=== PATIENT | female | born 1965 | race Hispanic/Latino ===

== ENCOUNTER 2016-08-07 19:05 | Emergency (ER) | payer OTHER ==
[2016-08-07] MEDS ORDERED: TYLENOL ONE (19:37)
[2016-08-07 19:38] VITALS: BP 150/89
[2016-08-07] MEDS ORDERED: TYLENOL PO ONE ×2 (19:39→19:40)
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
--- NOTE | 2016-08-08 19:31 | ED Elopement Review ---
ED Pt Elopement review - Results review Lab results: Laboratory Tests 08/07/16 20:13 Urine HCG, Qual Negative ct c/l spine no acute findings - Call Back decision Pt Call Back Decision: No action required
== END 2016-08-07 20:20 | disposition left against medical advice (07) ==
LOC: ED 19:05
DX: M54.2 Cervicalgia (principal); M54.9 Dorsalgia, unspecified; Z53.21 Procedure and treatment not carried out due to patient leaving prior to being seen by health care provider
CPT/HCPCS: 72125; 72128; 81025

== ENCOUNTER 2016-12-28 12:54 | Outpatient (CLI) | payer OTHER ==
--- NOTE | 2016-12-28 13:45 | Mammography Report ---
BILATERAL MAMMOGRAM with CAD: HISTORY:Cancer screening. Prior studies are unavailable for comparison. FINDINGS: The breasts are almost entirely fat (<25% glandular). No mass, distortion, suspicious calcification, or skin change is seen. IMPRESSION: Negative mammogram. There is no mammographic evidence of malignancy. RECOMMENDATION: Follow-up per ACS guidelines. BI-RADS CATEGORY: 1 = Negative ACR BI-RADS MAMMOGRAPHIC CODES: 0 = Needs additional imaging evaluation; 1 = Negative; 2 = Benign; 3 = Probably benign; 4 = Suspicious; 5 = Malignant; 6 = Known biopsy-proven malignancy COMMENT: 1. Dense breast tissue, i.e., adenosis, fibrocystic changes, etc., may obscure an underlying neoplasm. 2. Approximately 10% of cancers are not detected with mammography. 3. A negative mammography report should not delay biopsy if a clinically suspicious mass is present. COMMENT: Patient follow-up letters are generated in [facility].
== END 2016-12-28 12:55 | disposition home or self-care (01) ==
LOC: MAMMO 12:54
PROVIDERS: ATTEND Advanced Practice Midwife
DX: Z12.31 Encounter for screening mammogram for malignant neoplasm of breast (principal); I10 Essential (primary) hypertension; F17.200 Nicotine dependence, unspecified, uncomplicated
CPT/HCPCS: 77067; G0202

== ENCOUNTER 2017-12-31 07:24 | Outpatient (CLI) | payer OTHER ==
--- NOTE | 2017-12-31 08:05 | Mammography Report ---
BILATERAL MAMMOGRAM: FINDINGS: There are scattered fibroglandular densities (approximately 25%-50% glandular). No mass, distortion, suspicious calcification, or skin change is seen. There is no significant change when compared to her prior exam in December 2016. CAD was utilized. IMPRESSION: Negative mammogram. There is no mammographic evidence of malignancy. RECOMMENDATION: Follow-up per ACS guidelines. BI-RADS CATEGORY: 1 = Negative ACR BI-RADS MAMMOGRAPHIC CODES: 0 = Needs additional imaging evaluation; 1 = Negative; 2 = Benign; 3 = Probably benign; 4 = Suspicious; 5 = Malignant; 6 = Known biopsy-proven malignancy COMMENT: 1. Dense breast tissue, i.e., adenosis, fibrocystic changes, etc., may obscure an underlying neoplasm. 2. Approximately 10% of cancers are not detected with mammography. 3. A negative mammography report should not delay biopsy if a clinically suspicious mass is present. COMMENT: Patient follow-up letters are generated in [facility].
== END 2017-12-31 07:25 | disposition home or self-care (01) ==
LOC: MAMMO 07:24
PROVIDERS: ATTEND Advanced Practice Midwife
DX: Z12.31 Encounter for screening mammogram for malignant neoplasm of breast (principal); F17.210 Nicotine dependence, cigarettes, uncomplicated
CPT/HCPCS: 77067

== ENCOUNTER 2018-12-11 12:36 | Emergency (ER) | payer OTHER ==
--- NOTE | 2018-12-11 12:50 | Emergency Department Report ---
Blank Doc - Documentation Documentation: This is a 53-year-old female that presents with acute on chronic intermittent headaches. This initial assessment/diagnostic orders/clinical plan/treatment(s) is/are subject to change based on patient's health status, clinical progression and re- assessment by fellow clinical providers in the ED. Further treatment and workup at subsequent clinical providers discretion. Patient/guardians urged not to elope from the ED as their condition may be serious if not clinically assessed and managed. Initial orders include: 1- Patient sent to [facility] for further evaluation and treatment
[2018-12-11 12:51] VITALS: BP 145/76
--- NOTE | 2018-12-11 13:55 | Emergency Department Report ---
ED Headache HPI - General Chief Complaint: Headache Stated Complaint: HEADACHE/LIGHT HEADED Time Seen by Provider: 12/11/18 12:48 Source: family Exam Limitations: no limitations - History of Present Illness Initial Comments: Mrs. Aceves is a very pleasant 53-year-old female who presents with headache and visual disturbance for the past 2 weeks. She saw several black spots which prompted her PCP Dr. Shadi Castro to refer her to pack operator Dr. Martinez. Dr. Martinez stated that she had normal eye exam with normal pressures. She has been referred to Dr. Gracia neurologist in [place]. Appointment is in December. She stated that "I just want to make sure my brain is okay". She has mild to moderate severe pain behind both eyes. No visual disturbances not returned. However she does have lightheadedness. Denies vertigo. Denies gait or speech difficulty. Denies paresthesias. Recently stop smoking for the past 6 weeks after 30 years of tobacco use. She has been using medication Chantix for the past 6 weeks. Timing/Duration: other (2 weeks) Quality: moderate Head Injury Location: frontal, global Recent Head Trauma: other (recent frequent headaches) Associated Symptoms: denies symptoms Allergies/Adverse Reactions: Allergies diphenhydramine HCl [From Benadryl] Allergy (Verified 12/11/18 12:37) Hives terfenadine [From Seldane] Allergy (Verified 12/11/18 12:37) Unknown Home Medications: Ambulatory Orders Butalb/Acetaminophen/Caffeine [Fioricet 50-300-40 mg CAP] 1 cap PO Q6HR PRN #10 cap 12/11/18 ED Review of Systems ROS: Stated complaint: HEADACHE/LIGHT HEADED Other details as noted in HPI Comment: All other systems reviewed and negative Constitutional: denies: fever, malaise Respiratory: denies: cough Cardiovascular: denies: chest pain ED Past Medical Hx - Past Medical History Previous Medical History?: Yes Hx Hypertension: Yes - Surgical History Additional Surgical History: tonsillitis,adnoids,reconstructive surg of ulnar bone,sinus surgery - Family History Family history: CAD/MT - Social History Smoking Status: Former Smoker Substance Use Type: None - Medications Home Medications: Home Medications Medication Instructions Recorded Confirmed Last Taken Type Butalb/Acetaminophen/Caffeine 1 cap PO Q6HR PRN #10 cap 12/11/18 Unknown Rx [Fioricet 50-300-40 mg CAP] ED Physical Exam - General Limitations: No Limitations General appearance: alert, in no apparent distress, other (pleasant, smiling, articulate, well-appearing, appears comfortable) - Head Head exam: Present: atraumatic, normocephalic - Eye Eye exam: Present: normal appearance - ENT ENT exam: Present: mucous membranes moist - Neck Neck exam: Present: normal inspection, full ROM. Absent: tenderness, meningi smus - Respiratory Respiratory exam: Present: normal lung sounds bilaterally. Absent: respiratory distress, wheezes, rales, rhonchi - Cardiovascular Cardiovascular Exam: Present: regular rate, normal rhythm, normal heart sounds. Absent: systolic murmur, diastolic murmur, rubs, gallop - GI/Abdominal GI/Abdominal exam: Present: soft, normal bowel sounds. Absent: distended, tenderness, guarding, rebound - Extremities Exam Extremities exam: Present: normal inspection - Back Exam Back exam: Present: normal inspection - Neurological Exam Neurological exam: Present: alert, oriented X3 - Psychiatric Psychiatric exam: Present: normal affect, normal mood - Skin Skin exam: Present: warm, dry, intact, normal color. Absent: rash ED Course Vital Signs 12/11/18 12:49 Temperature 97.9 F Pulse Rate 65 Respiratory 18 Rate Blood Pressure 145/76 O2 Sat by Pulse 98 Oximetry ED Medical Decision Making - Radiology Data Radiology results: report reviewed interpreted by me: CT head according to radiology report no acute process - Medical Decision Making Mrs. Aceves is a 53 yo female who presents with 2 weeks of headache and bilateral scotoma. With recent eye exam, pseudotumor cerebri is not likely. no obvious intracranial process such infarct, tumor or bleed exists. With the nature of th e headache, sinusitis is a concern. Subarachnoid hemorrhage or meningitis highly unlikely with this presentation. She will have MRI arranged by her new neurologist. I strongly encouraged her to keep this appointment. I have prescribed Fioricet for headache. Discharged home in stable condition. Critical care attestation.: If time is entered above; I have spent that time in minutes in the direct care of this critically ill patient, excluding procedure time. ED Disposition Clinical Impression: Acute headache, [place] Disposition: TO HOME OR SELFCARE Is pt being admited?: No Does the pt Need Aspirin: No Condition: Stable Instructions: Acute Headache (ED) Prescriptions: Butalb/Acetaminophen/Caffeine [Fioricet 50-300-40 mg CAP] 1 cap PO Q6HR PRN #10 cap PRN Reason: Headache
--- NOTE | 2018-12-11 14:47 | Cat Scan Report ---
CT scan of head without IV contrast: History: Headache. Findings: Ventricles are normal in size and midline in location. No evidence of acute ischemia, hemorrhage or mass. No extra axial fluid collection. Normal brainstem and cerebellum. 8mm polyp medial wall of the right maxillary sinus. 3 mm polyp at the medial of the left maxillary sinus. Normal mastoids. Impression: No acute intracranial abnormality. Sinus disease.
== END 2018-12-11 15:15 | disposition home or self-care (01) ==
LOC: ED 12:36
DX: H53.453 Other localized visual field defect, bilateral (principal); R51 Headache; I10 Essential (primary) hypertension; Z79.891 Long term (current) use of opiate analgesic; Z88.8 Allergy status to other drugs, medicaments and biological substances
CPT/HCPCS: 70450; 99283

== ENCOUNTER 2019-01-15 13:36 | Outpatient (CLI) | payer OTHER ==
--- NOTE | 2019-01-15 14:30 | Mammography Report ---
BILATERAL DIGITAL SCREENING MAMMOGRAM WITH CAD INDICATION: Routine screening mammography. TECHNIQUE: Digital bilateral 2D mammography was obtained in the craniocaudal and mediolateral obliq ue projections. This examination was interpreted with the benefit of Computer-Aided Detection analysi s. COMPARISON: 12/31/2017 FINDINGS: Breast Density: There are scattered areas of fibroglandular density. No mass, architectural distortion or suspicious calcifications. IMPRESSION:No mammographic evidence of malignancy. BI-RADS Category 1: Negative. No mammographic evidence of malignancy. Recommend routine screening m ammography in one year. A "normal" or negative report should not discourage follow up or biopsy of a clinically significant f inding. A written summary of these findings will be mailed to the patient. The patient will be entered into a mammography reporting system which will generate a reminder letter for the patient's next appointmen t at the appropriate interval. The [employer] recommends yearly mammograms starting at age 40 and continuing as l vincenzo as a woman is in good health. Breast MRI is recommended for women with an approximate 20-25% or greater lifetime risk of breast cancer, including women with a strong family history of breast or ova jannet cancer or who have been treated for Hodgkin's disease. Signer Name: Meño Wells MD Signed: 01/15/2019 2:25 PM Workstation Name: [id number]
== END 2019-01-15 13:37 | disposition home or self-care (01) ==
LOC: MAMMO 13:36
PROVIDERS: ATTEND Advanced Practice Midwife
DX: Z12.31 Encounter for screening mammogram for malignant neoplasm of breast (principal); I10 Essential (primary) hypertension
CPT/HCPCS: 77067

== ENCOUNTER 2019-05-06 08:39 | Day surgery (SDC) | payer OTHER ==
[~2019-05-06 08:39] MED LIST: SODIUM CHLORIDE 0.9% 1000 ML 1,000 ML IV SCH
--- NOTE | 2019-05-06 09:53 | Anesthesia Consultation ---
Anesthesia Consult and Med Hx Date of service: 05/06/19 - Airway Anesthetic Teeth Evaluation: Good ROM Head & Neck: Adequate Mental/Hyoid Distance: Adequate Mallampati Class: Class III Intubation Access Assessment: Possibly Difficult - Pulmonary Exam CTA: Yes - Cardiac Exam Cardiac Exam: RRR - Pre-Operative Health Status ASA Pre-Surgery Classification: ASA2 Proposed Anesthetic Plan: MAC - Pulmonary Hx Smoking: Yes (quit 07/2018) Hx Respiratory Symptoms: No - Cardiovascular System Hx Hypertension: Yes (took losartan this morning) Hx Heart Attack/AMI: No Hx Percutaneous Transluminal Coronary Angioplasty (PTCA): No - Central Nervous System CVA: No - Gastrointestinal Hx Gastroesophageal Reflux Disease: No - Endocrine Hx Renal Disease: No Hx Liver Disease: No Hx Insulin Dependent Diabetes: No Hx Non-Insulin Dependent Diabetes: No Hx Thyroid Disease: No - Other Systems Hx Obesity: No
--- NOTE | 2019-05-06 09:53 | Anesthesia Day of Surgery ---
Anesthesia Day of Surgery - Day of Surgery Patient Examined: Yes Patient H&P Reviewed: Yes Patient is NPO: Yes
[2019-05-06] MEDS ORDERED: PROPOFOL 200 MG/20 ML VIAL IV ONE ×2 (11:28)
[2019-05-06] MEDS ORDERED: LIDOCAINE MPF (2%) 20 MG/1 ML VIAL 5 ML ONE (11:30)
--- NOTE | 2019-05-06 11:51 | Short Stay Summary ---
Short Stay Documentation Date of service: 05/06/19 Narrative H&P: The patient presents for her first screening colonoscopy. Average risks. - History Past Medical History: arthritis, hypertension, hyperlipidemia Past Surgical History: tonsillectomy Social history: no significant social history - Allergies and Medications Current Medications: Allergies diphenhydramine HCl [From Benadryl] Allergy (Verified 12/11/18 12:37) Hives terfenadine [From Seldane] Allergy (Verified 12/11/18 12:37) Unknown Home Medications Medication Instructions Recorded Confirmed Last Taken Type Butalb/Acetaminophen/Caffeine 1 cap PO Q6HR PRN #10 cap 12/11/18 05/05/19 Rx [Fioricet 50-300-40 mg CAP] Amitriptyline 05/06/19 05/05/19 History Losartan-Hctz 100-25 mg Tab 05/06/19 05/05/19 History traZODone 05/06/19 05/05/19 History Active Medications Sodium Chloride (Nacl 0.9% 1000 Ml) 1,000 mls @ 50 mls/hr IV DIRECT JEVON - Physical exam General appearance: no acute distress, well-nourished Integumentary: no rash, no growths, no abnormal pigmentation HEENT: Atraumatic, PERRLA, EOMI, Mucous membr. moist/pink Lungs: Clear to auscultation, Normal air movement Breasts: deferred Heart: Regular rate, Normal S1, Normal S2, No murmurs Gastrointestinal: normoactive bowel sounds, no tenderness, no distended, no masses, no guarding Female Genitourinary: deferred Rectal Exam: normal exam-external/orifice, normal rectal tone, no mass Extremities: no ischemia, pulses intact, pulses symmetrical, No edema, normal temperature, normal color, Full ROM Neurological: Normal gait, Normal speech, Strength at 5/5 X4 ext, Normal tone, Sensation intact, Cranial nerves 3-12 NL - Brief post op/procedure progress note Date of procedure: 05/06/19 Post-op diagnosis: same Findings: see dictation Estimated blood loss: none Pathology: none Condition: stable - Disposition Condition at discharge: Good Disposition: DC-01 TO HOME OR SELFCARE - Discharge Diagnoses (1) Colon cancer screening Status: Acute Short Stay Discharge Plan Activity: other (no driving for 24 hours) Weight Bearing Status: Full Weight Bearing Diet: regular Follow up with: GINGER CODY MD [Primary Care Provider] - 7 Days
--- NOTE | 2019-05-06 11:52 | Operative Report ---
Operative Report Operative Report: Date of procedure: 05/06/2019 Preprocedure diagnosis: Colon cancer screening, average risk. No prior studies. Post procedure diagnosis: Normal study Procedure: Colonoscopy to the cecum Endoscopist: Dr. Jaquez Anesthesia: Monitored anesthesia care per anesthesia department Estimated blood loss: 0 Medications: Monitored anesthesia care. See separate report by anesthesia for details. After careful discussion of the nature and purpose of the procedure as well as details of the technique risks benefits and alternatives the patient gave consent. Please see recent history and physical from the office. The patient was placed in the left lateral decubitus position and medicated per anesthesia. A rectal exam was performed sphincter tone was normal there were no masses palpable. The Olympus colonoscope was passed transanally and advanced under continuous direct vision without difficulty to the cecum. The colon was well prepared. The cecum was normal. The ascending colon was normal and on forward and retroflexed views. The transverse colon, descending colon, and sigmoid colon were normal. The rectum was normal on forward and retroflexed views. The procedure was well-tolerated overall and the patient was observed in recovery. Conclusions: Normal colonoscopy to the cecum. Plan: Repeat colonoscopy in 10 years, sooner if clinically indicated. Signed electronically: Chin Jaquez M.D.
[2019-05-06 12:13] VITALS: BP 109/67
--- NOTE | 2019-05-06 13:44 | Post Anesthesia Evaluation ---
- Post Anesthesia Evaluation Patient Participated: Yes Airway Patent: Yes Stable Respiratory Function: Yes Nausea/Vomiting: No Temp > 96.8F: Yes Pain Manageable: Yes Adequeate Hydration: Yes Anesthesia Complications: No Block Receding Appropriately: Not Applicable Patient on Ventilator: No
== END 2019-05-06 08:40 | disposition home or self-care (01) ==
LOC: GIO 08:39
PROVIDERS: ATTEND Internal Medicine Gastroenterology
DX: Z12.11 Encounter for screening for malignant neoplasm of colon (principal); M19.90 Unspecified osteoarthritis, unspecified site; I10 Essential (primary) hypertension; E78.5 Hyperlipidemia, unspecified; Z79.899 Other long term (current) drug therapy; Z87.891 Personal history of nicotine dependence; Z90.49 Acquired absence of other specified parts of digestive tract; Z98.890 Other specified postprocedural states; Z88.8 Allergy status to other drugs, medicaments and biological substances
CPT/HCPCS: 45378; J2704; J7030

== ENCOUNTER 2020-10-14 11:50 | Emergency (ER) | payer OTHER ==
--- NOTE | 2020-10-14 13:24 | Emergency Department Report ---
Blank Doc - Documentation Documentation: 54-year-old female that presents with a syncopal episode in her PCPs office. Denies any head injuries or trauma. Patient stated she was sitting down waiting room and became sensation of hot feeling and lost consciousness suddenly. 1- This initial assessment/diagnostic orders/clinical plan/ treatment(s) is/are subject to change based on pt's health status, clinical progression and re- assessment by fellow clinical providers in the ED. Further treatment and workup at subsequent clinical provers discretion. Patient/guardians urged not to elope from ED as their condition may be serious if not clinically assessed and managed. 2-cardiac work-up
[2020-10-14 14:21] LABS: Basophils % (Auto) 0.2 % (0.0-1.8); Eosinophils % (Auto) 0.3 % (0.0-4.3); Hematocrit 37.1 % (30.3-42.9); Hemoglobin 12.7 gm/dl (10.1-14.3); Lymphocytes # (Auto) 1.1 K/mm3 (1.2-5.4); Lymphocytes % (Auto) 9.2 % (13.4-35.0); Mean Corpuscular HGB Conc 34 % (30-34); Mean Corpuscular Volume 93 fl (79-97); Monocytes # (Auto) 0.5 K/mm3 (0.0-0.8); Monocytes % (Auto) 4.4 % (0.0-7.3); Platelet Count 241 K/mm3 (140-440); Red Cell Distribution Width 12.8 % (13.2-15.2)
[2020-10-14 14:30] LABS: Alanine Aminotransferase 74 units/L (7-56); Albumin 4.3 g/dL (3.9-5); Blood Urea Nitrogen 16 mg/dL (7-17); Calcium 9.3 mg/dL (8.4-10.2); Hemolysis Index 18
[2020-10-14 14:35] LABS: BUN/Creatinine Ratio 23
[2020-10-14 14:45] LABS: INR 0.95 (0.87-1.13)
[2020-10-14 14:46] LABS: Partial Thromboplastin Time 30.9 Sec. (24.2-36.6)
[2020-10-14] MEDS ORDERED: ONDANSETRON 4 MG/2 ML INJ IV ONE (16:22)
[2020-10-14] MEDS ORDERED: FAMOTIDINE 20 MG/2 ML INJ IV ONE (16:22)
[2020-10-14] MEDS ORDERED: KETOROLAC 30 MG/1 ML INJ IV ONE (16:22)
[2020-10-14] MEDS ORDERED: SODIUM CHLORIDE 0.9% 1000 ML 1,000 ML IV ONE (16:22)
[2020-10-14] MEDS ORDERED: DICYCLOMINE 20 MG/2 ML INJ IM ONE (16:22)
[2020-10-14 16:48] LABS: Bilirubin,Urine NEG (Negative); Blood,Urine NEG (Negative); Color,Urine Yellow (Yellow); Mucus,Urine FEW /HPF; Protein,Urine <15 mg/dL mg/dL (Negative); Urobilinogen,Urine < 2.0 mg/dL (<2.0); WBC,Urine < 1.0 /HPF (0.0-6.0)
--- NOTE | 2020-10-14 17:15 | Emergency Department Report ---
ED Abdominal Pain HPI - General Chief Complaint: Syncope Stated Complaint: SYNCOPE/ABD PAIN Time Seen by Provider: 10/14/20 13:22 Source: patient, EMS Mode of arrival: Wheelchair Limitations: Other - History of Present Illness Initial Comments: Patient is a 54-year-old female with a remote history of diverticulitis who is presenting with lower abdominal discomfort. States that the pain is mostly on the right side but it does extend just left of her navel. Is in the mid abdomen level. States it started last night has been progressively worsening. She denies any nausea vomiting or diarrhea. States that she has been mildly constipated but did have 2 small bowel movements earlier today. She went to her doctor's office to check on the abdominal pain and while there she became hot diaphoretic and had a syncopal episode. States she has had numerous syncopal episodes such as this in the past. - Related Data Home Medications Medication Instructions Recorded Confirmed Last Taken Amitriptyline 05/06/19 05/05/19 Losartan-Hctz 100-25 mg Tab 05/06/19 05/05/19 traZODone 05/06/19 05/05/19 Previous Rx's Medication Instructions Recorded Last Taken Type Butalb/Acetaminophen/Caffeine 1 cap PO Q6HR PRN #10 cap 12/11/18 05/05/19 Rx [Fioricet 50-300-40 mg CAP] Ciprofloxacin HCl 500 mg PO BID #20 tablet 10/14/20 Unknown Rx Docusate Sodium [Colace] 100 mg PO BID #30 capsule 10/14/20 Unknown Rx HYDROcodone/APAP 5-325 [[place] 1 each PO Q6HR PRN #14 tablet 10/14/20 Unknown Rx 5/325] Ketorolac [Toradol] 10 mg PO Q6H PRN #12 tablet 10/14/20 Unknown Rx metroNIDAZOLE [Flagyl] 500 mg PO Q12HR #14 tab 10/14/20 Unknown Rx Allergies Allergy/AdvReac Type Severity Reaction Status Date / Time diphenhydramine HCl Allergy Hives Verified 12/11/18 12:37 [From Benadryl] terfenadine [From [place]] Allergy Unknown Verified 12/11/18 12:37 ED Review of Systems ROS: Stated complaint: SYNCOPE/ABD PAIN Other details as noted in HPI Comment: All other systems reviewed and negative ED Past Medical Hx - Past Medical History Hx Hypertension: Yes (took losartan this morning) Hx Heart Attack/AMI: No Hx Liver Disease: No Hx Renal Disease: No Hx Arthritis: Yes - Surgical History Additional Surgical History: tonsillitis,adnoids,reconstructive surg of ulnar bone,sinus surgery - Social History Smoking Status: Never Smoker Substance Use Type: None - Medications Home Medications: Home Medications Medication Instructions Recorded Confirmed Last Taken Type Butalb/Acetaminophen/Caffeine 1 cap PO Q6HR PRN #10 cap 12/11/18 05/05/19 Rx [Fioricet 50-300-40 mg CAP] Amitriptyline 05/06/19 05/05/19 History Losartan-Hctz 100-25 mg Tab 05/06/19 05/05/19 History traZODone 05/06/19 05/05/19 History Ciprofloxacin HCl 500 mg PO BID #20 tablet 10/14/20 Unknown Rx Docusate Sodium [Colace] 100 mg PO BID #30 capsule 10/14/20 Unknown Rx HYDROcodone/APAP 5-325 [[place] 1 each PO Q6HR PRN #14 tablet 10/14/20 Unknown Rx 5/325] Ketorolac [Toradol] 10 mg PO Q6H PRN #12 tablet 10/14/20 Unknown Rx metroNIDAZOLE [Flagyl] 500 mg PO Q12HR #14 tab 10/14/20 Unknown Rx ED Physical Exam - General Limitations: Other General appearance: alert, in no apparent distress - Head Head exam: Present: atraumatic, normocephalic - Eye Eye exam: Present: normal appearance - ENT ENT exam: Present: mucous membranes moist - Neck Neck exam: Present: normal inspection - Respiratory Respiratory exam: Present: normal lung sounds bilaterally. Absent: respiratory distress, wheezes, rales, rhonchi - Cardiovascular Cardiovascular Exam: Present: regular rate, normal rhythm, normal heart sounds. Absent: systolic murmur, diastolic murmur, rubs, gallop - GI/Abdominal GI/Abdominal exam: Present: soft, tenderness (Bilateral lower quadrants), normal bowel sounds. Absent: distended, guarding, rebound, rigid - Extremities Exam Extremities exam: Present: normal inspection - Back Exam Back exam: Present: normal inspection - Neurological Exam Neurological exam: Present: alert, oriented X3 - Psychiatric Psychiatric exam: Present: normal affect, normal mood - Skin Skin exam: Present: warm, dry, intact, normal color. Absent: rash ED Course Vital Signs 10/14/20 10/14/20 10/14/20 12:40 13:25 16:06 Temperature 98.3 F Pulse Rate 78 78 Pulse Rate [ Lying] Pulse Rate [ Sitting] Pulse Rate [ Standing] Respiratory 18 14 Rate Blood Pressure 99/61 Blood Pressure [Lying] Blood Pressure [Sitting] Blood Pressure [Standing] O2 Sat by Pulse 77 L 97 99 Oximetry 10/14/20 10/14/20 16:19 16:22 Temperature Pulse Rate 76 Pulse Rate [ 76 Lying] Pulse Rate [ 81 Sitting] Pulse Rate [ 78 Standing] Respiratory Rate Blood Pressure Blood Pressure 123/68 [Lying] Blood Pressure 115/72 [Sitting] Blood Pressure 126/75 [Standing] O2 Sat by Pulse Oximetry ED Medical Decision Making - Lab Data Result diagrams: 10/14/20 13:27 10/14/20 13:27 Lab Results 10/14/20 10/14/20 10/14/20 Range/Units 13:27 13:27 13:27 WBC 12.3 H (4.5-11.0) K/mm3 RBC 4.00 (3.65-5.03) M/mm3 Hgb 12.7 (10.1-14.3) gm/dl Hct 37.1 (30.3-42.9) % MCV 93 (79-97) fl MCH 32 (28-32) pg MCHC 34 (30-34) % RDW 12.8 L (13.2-15.2) % Plt Count 241 (140-440) K/mm3 Lymph % (Auto) 9.2 L (13.4-35.0) % [place] % (Auto) 4.4 (0.0-7.3) % Eos % (Auto) 0.3 (0.0-4.3) % Baso % (Auto) 0.2 (0.0-1.8) % Lymph # (Auto) 1.1 L (1.2-5.4) K/mm3 [place] # (Auto) 0.5 (0.0-0.8) K/mm3 Eos # (Auto) 0.0 (0.0-0.4) K/mm3 Baso # (Auto) 0.0 (0.0-0.1) K/mm3 Seg Neutrophils % 85.9 H (40.0-70.0) % Seg Neutrophils # 10.6 H (1.8-7.7) K/mm3 PT 12.6 (12.2-14.9) Sec. INR 0.95 (0.87-1.13) APTT 30.9 (24.2-36.6) Sec. Sodium 136 L (137-145) mmol/L Potassium 3.7 (3.6-5.0) mmol/L Chloride 99.3 (98-107) mmol/L Carbon Dioxide 24 (22-30) mmol/L Anion Gap 16 mmol/L BUN 16 (7-17) mg/dL Creatinine 0.7 (0.6-1.2) mg/dL Estimated GFR > 60 ml/min BUN/Creatinine Ratio 23 % Glucose 94 (65-100) mg/dL Calcium 9.3 (8.4-10.2) mg/dL Magnesium 2.10 (1.7-2.3) mg/dL Total Bilirubin 0.50 (0.1-1.2) mg/dL AST 47 H (5-40) units/L ALT 74 H (7-56) units/L Alkaline Phosphatase 159 H (35-129) units/L Troponin T < 0.010 (0.00-0.029) ng/mL Total Protein 7.1 (6.3-8.2) g/dL Albumin 4.3 (3.9-5) g/dL Albumin/Globulin Ratio 1.5 % Urine Color (Yellow) Urine Turbidity (Clear) Urine pH (5.0-7.0) Ur Specific [place] (1.003-1.030) Urine Protein (Negative) mg/dL Urine Glucose (UA) (Negative) mg/dL Urine Ketones (Negative) mg/dL Urine Blood (Negative) Urine Nitrite (Negative) Urine Bilirubin (Negative) Urine Urobilinogen (<2.0) mg/dL Ur Leukocyte Esterase (Negative) Urine WBC (Auto) (0.0-6.0) /HPF Urine RBC (Auto) (0.0-6.0) /HPF Urine Mucus /HPF 10/14/20 Range/Units 16:37 WBC (4.5-11.0) K/mm3 RBC (3.65-5.03) M/mm3 Hgb (10.1-14.3) gm/dl Hct (30.3-42.9) % MCV (79-97) fl MCH (28-32) pg MCHC (30-34) % RDW (13.2-15.2) % Plt Count (140-440) K/mm3 Lymph % (Auto) (13.4-35.0) % [place] % (Auto) (0.0-7.3) % Eos % (Auto) (0.0-4.3) % Baso % (Auto) (0.0-1.8) % Lymph # (Auto) (1.2-5.4) K/mm3 [place] # (Auto) (0.0-0.8) K/mm3 Eos # (Auto) (0.0-0.4) K/mm3 Baso # (Auto) (0.0-0.1) K/mm3 Seg Neutrophils % (40.0-70.0) % Seg Neutrophils # (1.8-7.7) K/mm3 PT (12.2-14.9) Sec. INR (0.87-1.13) APTT (24.2-36.6) Sec. Sodium (137-145) mmol/L Potassium (3.6-5.0) mmol/L Chloride (98-107) mmol/L Carbon Dioxide (22-30) mmol/L Anion Gap mmol/L BUN (7-17) mg/dL Creatinine (0.6-1.2) mg/dL Estimated GFR ml/min BUN/Creatinine Ratio % Glucose (65-100) mg/dL Calcium (8.4-10.2) mg/dL Magnesium (1.7-2.3) mg/dL Total Bilirubin (0.1-1.2) mg/dL AST (5-40) units/L ALT (7-56) units/L Alkaline Phosphatase (35-129) units/L Troponin T (0.00-0.029) ng/mL Total Protein (6.3-8.2) g/dL Albumin (3.9-5) g/dL Albumin/Globulin Ratio % Urine Color Yellow (Yellow) Urine Turbidity Clear (Clear) Urine pH 5.0 (5.0-7.0) Ur Specific [place] 1.015 (1.003-1.030) Urine Protein <15 mg/dl (Negative) mg/dL Urine Glucose (UA) Neg (Negative) mg/dL Urine Ketones Tr (Negative) mg/dL Urine Blood Neg (Negative) Urine Nitrite Neg (Negative) Urine Bilirubin Neg (Negative) Urine Urobilinogen < 2.0 (<2.0) mg/dL Ur Leukocyte Esterase Neg (Negative) Urine WBC (Auto) < 1.0 (0.0-6.0) /HPF Urine RBC (Auto) 1.0 (0.0-6.0) /HPF Urine Mucus Few /HPF - EKG Data 10/14/20 17:21 EKG shows sinus rhythm rate is 71. [place] is normal intervals are normal. No ST segment elevation or depressions. Time interpretation 1342 - Radiology Data [facility] [address] [place] [address] Cat Scan Report Signed Patient: ALICIA CANCINO MR#: [id number] : 1965 Acct:[id number] Age/Sex: 54 / F ADM Date: 10/14/20 Loc: ED Attending Dr: Ordering Physician: JENNIE POSADAS NP Date of Service: 10/14/20 Procedure(s): CT abdomen pelvis w con Accession Number(s): [id number] cc: JENNIE POSADAS NP CT ABDOMEN AND PELVIS WITH CONTRAST INDICATION / CLINICAL INFORMATION: MAIN. Abdominal pain TECHNIQUE: Axial CT images were obtained through the abdomen and pelvis after 100 cc Omnipaque 300 milligrams percent IV contrast. All CT scans at this location are performed using CT dose reduction for ALARA by means of automated exposure control. COMPARISON: None available. FINDINGS: LOWER CHEST: Small pericardial effusion is present. Small hiatal hernia is present. LIVER: No significant abnormality. GALLBLADDER: No significant abnormality. BILE DUCTS: No significant abnormality. PANCREAS: No significant abnormality. SPLEEN: No significant abnormality. ADRENALS: No significant abnormality. RIGHT KIDNEY and URETER: No significant abnormality. LEFT KIDNEY and URETER: No significant abnormality. STOMACH and SMALL BOWEL: No significant abnormality. COLON: Several diverticuli are present sigmoid colon APPENDIX: No significant abnormality. PERITONEUM: No free fluid. No free air. No fluid collection. LYMPH NODES: No significant adenopathy. AORTA and ARTERIES: Calcified atherosclerotic plaque abdominal aorta. IVC and VEINS: No significant abnormality. URINARY BLADDER: No significant abnormality. REPRODUCTIVE ORGANS: Calcified uterine fibroids largest measuring 3.1 cm ADDITIONAL FINDINGS: None. SKELETAL SYSTEM: No significant abnormality. IMPRESSION: 1. Calcified uterine fibroid 2. Small pericardial effusion 3. Diverticula sigmoid colon Signer Name: Tad Angel MD Signed: 10/14/2020 5:15 PM Workstation Name: [id number] Transcribed By: CYNTHIA Dictated By: Tad Angel MD Electronically Authenticated By: Tad Angel MD Signed Date/Time: 10/14/20 8718 - Medical Decision Making Patient's EKG and laboratory studies are within normal limits. She likely had a vasovagal episode secondary to her pain. CT shows no acute abnormality. She does have chronic diverticula present in the sigmoid colon but could have a subclinical diverticulitis there is just not being seen yet on CT. Patient does have a slight elevation of her white count. Spoke with the patient's primary care physician Dr. Cody and he thinks it best to start the patient on antibiotics and pain management and he will follow up with her in several days. Critical care attestation.: If time is entered above; I have spent that time in minutes in the direct care of this critically ill patient, excluding procedure time. ED Disposition Clinical Impression: Vasovagal syncope, Abdominal pain, Diverticula of colon Disposition: -01 TO HOME OR SELFCARE Is pt being admited?: No Does the pt Need Aspirin: No Condition: Stable Instructions: Syncope (ED), Abdominal Pain, Adult, [id number], Syncope, [id number], Diverticulosis Referrals: GINGER CODY MD [Primary Care Provider] - 3-5 Days Time of Disposition: 18:33
--- NOTE | 2020-10-14 17:19 | Cat Scan Report ---
CT ABDOMEN AND PELVIS WITH CONTRAST INDICATION / CLINICAL INFORMATION: MAIN. Abdominal pain TECHNIQUE: Axial CT images were obtained through the abdomen and pelvis after 100 cc Omnipaque 300 milligrams pe rcent IV contrast. All CT scans at this location are performed using CT dose reduction for ALARA by means of automated exposure control. COMPARISON: None available. FINDINGS: LOWER CHEST: Small pericardial effusion is present. Small hiatal hernia is present. LIVER: No significant abnormality. GALLBLADDER: No significant abnormality. BILE DUCTS: No significant abnormality. PANCREAS: No significant abnormality. SPLEEN: No significant abnormality. ADRENALS: No significant abnormality. RIGHT KIDNEY and URETER: No significant abnormality. LEFT KIDNEY and URETER: No significant abnormality. STOMACH and SMALL BOWEL: No significant abnormality. COLON: Several diverticuli are present sigmoid colon APPENDIX: No significant abnormality. PERITONEUM: No free fluid. No free air. No fluid collection. LYMPH NODES: No significant adenopathy. AORTA and ARTERIES: Calcified atherosclerotic plaque abdominal aorta. IVC and VEINS: No significant abnormality. URINARY BLADDER: No significant abnormality. REPRODUCTIVE ORGANS: Calcified uterine fibroids largest measuring 3.1 cm ADDITIONAL FINDINGS: None. SKELETAL SYSTEM: No significant abnormality. IMPRESSION: 1. Calcified uterine fibroid 2. Small pericardial effusion 3. Diverticula sigmoid colon Signer Name: Tad Angel MD Signed: 10/14/2020 5:15 PM Workstation Name: [email or web address]
[2020-10-14 19:14] VITALS: BP 115/63
--- NOTE | 2020-10-15 08:32 | Electrocardiograph Report ---
[facility] Test Date: 2020-10-14 Test Time: 13:37:17 Pat Name: ALICIA CANCINO Department: Room: Gender: F Aeroplane Pilot: PENELOPE : 1965 Requested By: JENNIE POSADAS Order Number: [id number] Reading MD: Billy Che Measurements Intervals [place] Rate: 71 P: 83 [place]: 161 QRS: 8 QRSD: 88 T: 23 QT: 416 QTc: 454 Interpretive Statements Sinus rhythm Probable left atrial enlargement Low voltage, precordial leads No previous ECG available for comparison Electronically Signed On 10-15-2020 8:32:22 EDT by Billy Che
== END 2020-10-14 19:14 | disposition home or self-care (01) ==
LOC: ED 11:50
DX: R55 Syncope and collapse (principal); K57.30 Diverticulosis of large intestine without perforation or abscess without bleeding; R10.30 Lower abdominal pain, unspecified; I10 Essential (primary) hypertension; M19.91 Primary osteoarthritis, unspecified site; Z98.890 Other specified postprocedural states; Z79.899 Other long term (current) drug therapy; Z88.8 Allergy status to other drugs, medicaments and biological substances
CPT/HCPCS: 36415; 74177; 80053; 81001; 83735; 84484; 85025; 85610; 85730; 93005; 96361; 96372; 96374; 96375; 99284; J0500; J1885; J2405; J7030; Q9967

== ENCOUNTER 2021-01-27 09:35 | Outpatient (CLI) | payer OTHER ==
--- NOTE | 2021-01-27 11:35 | Mammography Report ---
DIGITAL SCREENING MAMMOGRAM WITH CAD, 01/27/2021 INDICATION: Routine screening mammography. TECHNIQUE: Digital bilateral 2D mammography was obtained in the craniocaudal and mediolateral obliq ue projections. This examination was interpreted with the benefit of Computer-Aided Detection analysi s. COMPARISON: 01/22/2020 FINDINGS: Breast Density: There are scattered areas of fibroglandular density. There is no evidence of dominant mass, suspicious calcifications or architectural distortion in eithe r breast. IMPRESSION: Follow up recommendation: Routine yearly BI-RADS Category 1: Negative. A "normal" or negative report should not discourage follow up or biopsy of a clinically significant f inding. A written summary of these findings will be mailed to the patient. The patient will be entered into a mammography reporting system which will generate a reminder letter for the patient's next appointmen t at the appropriate interval. The [employer] recommends yearly mammograms starting at age 40 and continuing as l vincenzo as a woman is in good health. Breast MRI is recommended for women with an approximate 20-25% or greater lifetime risk of breast cancer, including women with a strong family history of breast or ova jannet cancer or who have been treated for Hodgkin's disease. Signer Name: Ulises Willoughby MD Signed: 01/27/2021 11:31 AM Workstation Name: [id number]
== END 2021-01-27 09:36 | disposition home or self-care (01) ==
LOC: MAMMO 09:35
PROVIDERS: ATTEND Advanced Practice Midwife
DX: Z12.31 Encounter for screening mammogram for malignant neoplasm of breast (principal); N64.89 Other specified disorders of breast
CPT/HCPCS: 77067